=== PATIENT | male | born 1985 | race Caucasian/White ===

== ENCOUNTER 2017-12-11 12:50 | Emergency (ER) | payer BC ==
[~2017-12-11] VITALS: Ht 170.2 cm; Wt 72.6 kg
[2017-12-11 13:08] VITALS: Ht 170.2 cm; Wt 72.6 kg
[2017-12-11 14:37] VITALS: BP 117/68
== END 2017-12-11 14:37 | disposition home or self-care (01) ==
LOC: ED 12:50
DX: S61.216A Laceration without foreign body of right little finger without damage to nail, initial encounter (principal); S83.91XA Sprain of unspecified site of right knee, initial encounter; X58.XXXA Exposure to other specified factors, initial encounter; Y93.89 Activity, other specified; Y92.89 Other specified places as the place of occurrence of the external cause; Y99.8 Other external cause status
CPT/HCPCS: 90715; J1885; Q0092